=== PATIENT | female | born 1975 | race Two or more races ===

== ENCOUNTER 2017-09-28 09:05 | Outpatient (RCR) | payer MEDICARE, OTHER ==
[~2017-09-28 09:05] MED LIST: MINERAL OIL/PETROLAT/GLYCERI 6OZ BTL ONE
[2017-09-28] MEDS ORDERED: MINERAL OIL/PETROLAT/GLYCERI 6OZ BTL ONE (14:20)
[2017-09-28] MEDS ORDERED: MUPIROCIN 2% OINT 22 GM TUBE ONE (14:20)
[2017-09-28] MEDS ORDERED: LIDOCAINE VISC 2% SOLN 15 ML UDC ONE (14:20)
== END 2017-09-30 ==
LOC: WCC 09:05
PROVIDERS: ATTEND Internal Medicine Infectious Disease
DX: Q82.0 Hereditary lymphedema (principal); I87.323 Chronic venous hypertension (idiopathic) with inflammation of bilateral lower extremity; R60.0 Localized edema; I87.2 Venous insufficiency (chronic) (peripheral); I89.0 Lymphedema, not elsewhere classified; D84.9 Immunodeficiency, unspecified; E03.8 Other specified hypothyroidism; I10 Essential (primary) hypertension; E66.01 Morbid (severe) obesity due to excess calories; J45.51 Severe persistent asthma with (acute) exacerbation; K21.9 Gastro-esophageal reflux disease without esophagitis

== ENCOUNTER 2017-10-26 09:55 | Outpatient (RCR) | payer MEDICARE, OTHER | END 2017-10-31 | LOC: WCC 09:55 | PROVIDERS: ATTEND Internal Medicine Infectious Disease | DX: S81.002A Unspecified open wound, left knee, initial encounter (principal); I87.323 Chronic venous hypertension (idiopathic) with inflammation of bilateral lower extremity; R60.0 Localized edema; I89.0 Lymphedema, not elsewhere classified; I87.2 Venous insufficiency (chronic) (peripheral); Q82.0 Hereditary lymphedema; K21.9 Gastro-esophageal reflux disease without esophagitis; J45.51 Severe persistent asthma with (acute) exacerbation; I10 Essential (primary) hypertension; D84.9 Immunodeficiency, unspecified; E66.01 Morbid (severe) obesity due to excess calories; W17.89XA Other fall from one level to another, initial encounter | CPT/HCPCS: 29581 ×3; G0463 ×3 ==